=== PATIENT | male | born 1930 | race Two or more races ===

== ENCOUNTER 2017-11-19 20:01 | Inpatient (IN) | payer MEDICARE ==
[~2017-11-19] VITALS: Ht 177.8 cm; Wt 78.0 kg
[~2017-11-19 20:01] MED LIST: FLOMAX0.4 MG PO; GLIPIZIDE5 MG PO; NAPROXEN250 MG PO; NORCO 5-325 TA1 EACH PO; OMEPRAZOLE20 M1 PO; TOPROL XL25 MG PO; tylenol #4 PO
[2017-11-19 20:08] VITALS: BP 171/81
[2017-11-19 20:13] VITALS: BP 171/81
[2017-11-19] MEDS ORDERED: MELOXICAM7.5 MG PO (20:37)
[2017-11-19] MEDS ORDERED: METFORMIN HCL500 MG PO (20:37)
[2017-11-19 20:53] VITALS: BP 171/81
[2017-11-19] MEDS ORDERED: TRAMADOL HCL 50 MG TAB PO PRN (21:15)
[2017-11-19] MEDS ORDERED: METOPROLOL SUCCINATE 25 MG TAB XL PO ONE (22:45)
[2017-11-20 00:10] VITALS: BP 136/60
[2017-11-20 04:00] VITALS: BP 171/81
[2017-11-20 07:26] LABS: BASOPHILS % 0.3 % (0.0-1.0); EOSINOPHILS # (AUTO) 0.3 (0.0-0.4); EOSINOPHILS % 4.7 % (0.0-6.0); HEMATOCRIT 25.5 % (38.2-49.6); HEMOGLOBIN 8.8 g/dL (14.0-18.0); LYMPHOCYTES # (AUTO) 1.6 (1.0-3.2); LYMPHOCYTES % 23.1 % (18.0-39.1); MEAN CORPUSCULAR HEMOGLOBIN 32.1 pg (28-32); MEAN CORPUSCULAR HGB CONC 34.5 g/dL (31-35); MEAN CORPUSCULAR VOLUME 93.1 fL (81-99); MONOCYTES # (AUTO) 0.7 (0.2-0.8); MONOCYTES % 10.8 % (4.4-11.3); NEUTROPHILS # (AUTO) 4.2 (2.1-6.9); NEUTROPHILS % 60.7 % (38.7-80.0); PLATELET COUNT 172 x10e3/uL (140-360); RED BLOOD COUNT 2.74 x10e6/uL (4.3-5.7); RED CELL DISTRIBUTION WIDTH 12.9 % (11.7-14.4)
[2017-11-20 07:41] LABS: INR 1.14; PROTHROMBIN TIME 13.7 seconds (11.9-14.5)
[2017-11-20 07:42] LABS: PARTIAL THROMBOPLASTIN TIME 29.4 seconds (23.8-35.5)
[2017-11-20 07:59] LABS: ALBUMIN/GLOBULIN RATIO 1.1 (0.8-2.0); ANION GAP 11.2 mmol/L (8-16); CALCIUM 8.5 mg/dL (8.4-10.2); CREATININE, SERUM 1.53 mg/dL (0.72-1.25); POTASSIUM 4.2 mmol/L (3.5-5.1)
[2017-11-20] MEDS ORDERED: PANTOPRAZOLE SOD 40 MG TABEC PO SCH (09:00)
[2017-11-20] MEDS: METFORMIN HCL 500 MG TAB PO SCH ×2 (09:51→16:33)
[2017-11-20] MEDS: TAMSULOSIN HCL 0.4 MG CAP PO SCH (09:51)
[2017-11-20] MEDS: METOPROLOL SUCCINATE 25 MG TAB XL PO SCH (09:51)
[2017-11-20] MEDS: MELOXICAM 7.5 MG TAB PO SCH (09:51)
[2017-11-20] MEDS: PANTOPRAZOLE SOD 40 MG TABEC PO SCH (09:51)
[2017-11-20 10:11] VITALS: BP 151/97
[2017-11-20 11:59] VITALS: BP 119/62
--- NOTE | 2017-11-20 16:15 | Consultation ---
DATE OF CONSULTATION: November 19, 2017 CHIEF COMPLAINT: Left hip pain. HISTORY OF PRESENT ILLNESS: The patient is an 86-year-old gentleman who was found on the floor by his son next to his bed. This happened about 2 days ago. It was felt that he fell out of bed. He was initially returned to the bed and complained of left hip pain. After approximately one day, the family realized that he had something fairly significant going on and called 9--1. He was transported to [facility]. He was noted to have a left proximal femur fracture around the previous hip replacement. I had done the hip replacement back in 2013 and so they called me. He was transferred to [facility] for definitive treatment. PAST MEDICAL HISTORY: Has a history of diabetes. Previous surgeries include an original pinning of a left hip fracture treated in 2010 by another physician. This failed and he underwent a conversion to a left total hip arthroplasty by myself in March 2014. MEDICATIONS: He takes Glipizide, meloxicam, metoprolol, omeprazole and Tamsulosin and Tramadol. ALLERGIES: HE DENIES ANY DRUG ALLERGIES. SOCIAL HISTORY: He lives with his son. He does not smoke. He is . He does not drink. PHYSICAL EXAMINATION: GENERAL: He is awake, but provides a vague history. He seems somewhat confused and cannot provide all details. He is in 5 pounds of Graham's traction on the left lower extremity. The left thigh is swollen. Previous hip incision is well healed. Distal neurovascular exam is normal. X-rays show a periprosthetic fracture around a cemented [place] hip arthroplasty. There is a good cement mantle. IMPRESSION: Complex left hip periprosthetic fracture. I spoke to one of his sons. He clarified some of the details of the history outlined above. He mentioned that one of his other brothers has Power of V[employer] Overhauler. I explained that definitive treatment would require surgical intervention considering that he broke this from a fall from a standing height. I explained that his health is failing and he is becoming quite frail. My suspicion is that we will be able to realign the hip around the existing prosthesis with a cable plate, but he will need to use a wheelchair for roughly 3 months. The likelihood that he will return to ambulatory status is unknown. He appears to have some element of dementia and this further complicates and challenges the situation. The son explained that they will come to the hospital later today and I will visit with him further about the treatment options. Job#: [id number] PAUL
[2017-11-20 17:03] VITALS: BP 130/69
[2017-11-20] MEDS ORDERED: CEFAZOLIN SOD 1 GM VIAL IV SCH ×2 (18:00→22:00)
[2017-11-20 20:00] VITALS: BP 143/68
[2017-11-21] VITALS (7 sets, daily range): BP systolic 132–183; BP diastolic 62–87
[2017-11-21] MEDS: MELOXICAM 7.5 MG TAB PO SCH (09:00)
[2017-11-21] MEDS ORDERED: CEFAZOLIN SOD 1 GM VIAL IV SCH (09:00)
[2017-11-21] MEDS: METFORMIN HCL 500 MG TAB PO SCH ×2 (09:00→17:49)
[2017-11-21] MEDS: PANTOPRAZOLE SOD 40 MG TABEC PO SCH (09:00)
[2017-11-21] MEDS ORDERED: MUPIROCIN 2% OINT 22 GM TUBE ONE (09:23)
[2017-11-21] MEDS ORDERED: TRANEXAMIC ACID 1,000 MG/10 ML ML ONE (09:23)
[2017-11-21] MEDS ORDERED: BACITRACIN 50,000 UNIT VIAL ONE (09:24)
[2017-11-21] MEDS ORDERED: SODIUM CHLORIDE 0.9% 1000ML 1,000 ML IV SCH (11:05)
[2017-11-21] MEDS ORDERED: KETOROLAC TROMETHAMINE 30 MG/ML VIAL IV PRN (11:15)
[2017-11-21] MEDS ORDERED: PROMETHAZINE HCL (IM) 25 MG/ML VIAL IM PRN (11:15)
[2017-11-21] MEDS ORDERED: ONDANSETRON HCL INJ 2 MG/ML VIAL IV PRN (11:15)
[2017-11-21] MEDS ORDERED: ACETAMINOPHEN 650 MG SUPP PR PRN (11:15)
[2017-11-21] MEDS ORDERED: HYDROCODONE/APAP 5MG-325MG TAB PO PRN (11:15)
[2017-11-21] MEDS ORDERED: DIPHENHYDRAMINE HCL INJ 50 MG/ML VIAL IM/IV PRN (11:15)
[2017-11-21] MEDS ORDERED: HYDROCODONE/APAP 7.5MG-325MG 1 EA TAB PO PRN (11:15)
[2017-11-21] MEDS ORDERED: FENTANYL CITRATE/PF 100MCG/2 ML INJ ONE ×2 (11:37→15:06)
[2017-11-21] MEDS: ACETAMINOPHEN 1000 MG/100 ML IV SCH ×2 (13:04→18:24)
[2017-11-21] MEDS ORDERED: CEFAZOLIN SOD 1 GM/NS 50ML 50 ML IV SCH (14:00)
--- NOTE | 2017-11-21 16:27 | Operative Report ---
DATE OF PROCEDURE: November 21, 2017 __ASSISTANT: Alexandro Romero PA-C __The patient was brought to the operating room for induction of anesthesia. Throughout this case, my PA's assistance was necessary for retraction of soft tissue and positioning of the extremity. This allows for efficient and technically successful execution of the operation and is considered medically necessary. PREOPERATIVE DIAGNOSIS: Left femur periprosthetic fracture. POSTOPERATIVE DIAGNOSIS: Left femur periprosthetic fracture. PROCEDURE: Open reduction and internal fixation left femur periprosthetic fracture. INDICATIONS: The patient is an 86-year-old gentleman who is about 4 years status post a left total hip arthroplasty. He fell getting out of bed and now has a complex fracture around his left hip replacement. The findings and options have been discussed. He has a well-fixed cement mantle around an [place] femoral stem. I plan on open reduction with internal fixation using a cable plate. The risks and benefits and challenges of the recovery have been thoroughly explained to the patient and his family. They state they understand and wish to proceed. DESCRIPTION OF PROCEDURE: The patient was brought to the operating room and placed under general anesthetic. He received prophylactic antibiotics and tranexamic acid in the holding area. He was positioned in the right lateral decubitus position. His left lower extremity was carefully prepped and draped in a sterile manner. A preoperative time out was performed. An extensile direct lateral approach was made to the femur. Previous old Ethibond stitches were removed. The vastus lateralis was elevated off of the linea aspera. Perforating vessels were ligated. The distal muscle was not elevated to avoid unnecessary periosteal stripping. The fracture site was carefully exposed. Tillman retractors were placed. Reduction clamps and cerclage wires were used to reduce the spiral fracture in an anatomic fashion. A Biomet lateral cable plate was contoured to accommodate the bow of the greater trochanter. The 8-hole plate was fixed proximally with several cerclage wires and distally with interlocking screws. Nice secure fixation was felt to be obtained and directly observed at the time of surgery. Intraoperative x-rays confirmed anatomic reduction and good position of the hardware. As mentioned, the distal muscles were split in line with the fibers to allow placement of the screw holes with out stripping the entire muscles off of the linea aspera or lateral femur. Five mL of DBX bone putty was placed along the line of the fracture. This was done after thoroughly irrigating the wound with a shower-tip pulsatile lavage. The tensor fascia was then closed with interrupted 0 Vicryl. Subcuticular Vicryl and darin were used to close the skin. A sterile bandage was applied. The patient was returned to the supine position and extubated. He was transported to the recovery room in stable condition. Blood loss was approximately 100 mL. At the end of the procedure, all needle and sponge counts were correct. Because of his starting low hemoglobin, he was given 1 unit of packed red blood cells during the surgery. Job#: [id number] EV
[2017-11-21] MEDS: CELECOXIB 100 MG CAP PO SCH (17:49)
[2017-11-21] MEDS: CEFAZOLIN SOD 1 GM VIAL IV SCH (17:49)
[2017-11-21] MEDS: METOPROLOL SUCCINATE 25 MG TAB XL PO SCH (17:49)
[2017-11-21] MEDS: TAMSULOSIN HCL 0.4 MG CAP PO SCH (17:49)
[2017-11-21] MEDS: ASPIRIN 325 MG TAB PO SCH (17:49)
[2017-11-21] MEDS ORDERED: CEFAZOLIN SOD 2 GM in WATER STERILE 10ML VIAL 10 ML IV SCH (18:00)
[2017-11-21] MEDS ORDERED: DESFLURANE 240 ML BTL INH ONE (18:31)
[2017-11-21] MEDS ORDERED: ROCURONIUM BROMIDE 10 MG/ML 5ML VIAL ONE (18:31)
[2017-11-21] MEDS ORDERED: NEOSTIGMINE 5 MG/5ML SYR ONE (18:31)
[2017-11-21] MEDS ORDERED: PHENYLEPHRINE HCL 1% 10 MG/ML VIAL ONE (18:31)
[2017-11-21] MEDS ORDERED: DEXAMETHASONE SOD PHOS INJ 4 MG/ML VIAL ONE (18:31)
[2017-11-21] MEDS ORDERED: PROPOFOL IV EMULSION 10 MG/ML 20 ML VIAL ONE (18:31)
[2017-11-21] MEDS ORDERED: LIDOCAINE HCL 2% LOCAL INJ 5 ML SDV VIAL INJ ONE (18:31)
[2017-11-21] MEDS ORDERED: ONDANSETRON HCL INJ 2 MG/ML VIAL ONE (18:31)
[2017-11-21] MEDS ORDERED: GLYCOPYRROLATE INJ 1MG/ 5 ML SYR ONE (18:31)
[2017-11-21] MEDS ORDERED: ZOLPIDEM TARTRATE 5 MG TAB PO PRN (21:00)
[2017-11-21] MEDS: CLONIDINE HCL 0.1 MG TAB PO PRN (21:43)
[2017-11-22] VITALS (8 sets, daily range): BP systolic 117–147; BP diastolic 57–68
[2017-11-22] MEDS: CEFAZOLIN SOD 1 GM VIAL IV SCH ×2 (00:27→09:13)
[2017-11-22] MEDS: ACETAMINOPHEN 1000 MG/100 ML IV SCH ×2 (05:25)
[2017-11-22 07:46] LABS: HEMATOCRIT 24.9 % (38.2-49.6); HEMOGLOBIN 8.5 g/dL (14.0-18.0)
[2017-11-22 08:01] LABS: ALBUMIN 2.9 g/dL (3.5-5.0); ANION GAP 11.6 mmol/L (8-16); CALCIUM 8.3 mg/dL (8.4-10.2); CREATININE, SERUM 1.86 mg/dL (0.72-1.25); POTASSIUM 4.6 mmol/L (3.5-5.1)
[2017-11-22] MEDS: ASPIRIN 325 MG TAB PO SCH ×2 (09:13→16:45)
[2017-11-22] MEDS: TAMSULOSIN HCL 0.4 MG CAP PO SCH (09:13)
[2017-11-22] MEDS: PANTOPRAZOLE SOD 40 MG TABEC PO SCH (09:13)
[2017-11-22] MEDS: CELECOXIB 100 MG CAP PO SCH (09:13)
[2017-11-22] MEDS: METFORMIN HCL 500 MG TAB PO SCH ×2 (09:13→16:45)
[2017-11-22] MEDS: MELOXICAM 7.5 MG TAB PO SCH (09:13)
[2017-11-22] MEDS: METOPROLOL SUCCINATE 25 MG TAB XL PO SCH (09:14)
[2017-11-22] MEDS ORDERED: ACETAMINOPHEN 1000 MG/100 ML IV PRN (11:15)
[2017-11-22] MEDS: CELECOXIB 200 MG CAP PO SCH (16:45)
[2017-11-23] VITALS (8 sets, daily range): BP systolic 123–175; BP diastolic 58–72
[2017-11-23 07:21] LABS: HEMATOCRIT 24.1 % (38.2-49.6); HEMOGLOBIN 8.1 g/dL (14.0-18.0)
[2017-11-23] MEDS: ASPIRIN 325 MG TAB PO SCH ×2 (09:15→16:23)
[2017-11-23] MEDS: METOPROLOL SUCCINATE 25 MG TAB XL PO SCH (09:15)
[2017-11-23] MEDS: METFORMIN HCL 500 MG TAB PO SCH ×2 (09:15→16:23)
[2017-11-23] MEDS: PANTOPRAZOLE SOD 40 MG TABEC PO SCH (09:15)
[2017-11-23] MEDS: MELOXICAM 7.5 MG TAB PO SCH (09:15)
[2017-11-23] MEDS: CELECOXIB 200 MG CAP PO SCH ×2 (09:15→16:23)
[2017-11-23] MEDS: TAMSULOSIN HCL 0.4 MG CAP PO SCH (09:15)
[2017-11-23] MEDS: DOCUSATE SODIUM 100 MG CAP PO PRN (18:05)
[2017-11-24] VITALS (8 sets, daily range): BP systolic 134–148; BP diastolic 63–76
[2017-11-24] MEDS: MELOXICAM 7.5 MG TAB PO SCH (08:19)
[2017-11-24] MEDS: ASPIRIN 325 MG TAB PO SCH ×2 (08:19→16:25)
[2017-11-24] MEDS: CELECOXIB 200 MG CAP PO SCH ×2 (08:19→16:25)
[2017-11-24] MEDS: PANTOPRAZOLE SOD 40 MG TABEC PO SCH (08:19)
[2017-11-24] MEDS: METFORMIN HCL 500 MG TAB PO SCH ×2 (08:19→16:25)
[2017-11-24] MEDS: TAMSULOSIN HCL 0.4 MG CAP PO SCH (08:19)
[2017-11-24] MEDS: METOPROLOL SUCCINATE 25 MG TAB XL PO SCH (08:20)
[2017-11-24] MEDS: DOCUSATE SODIUM 100 MG CAP PO PRN (08:20)
[2017-11-25] VITALS: BP 130/76
[2017-11-25 04:00] VITALS: BP 142/63
[2017-11-25] MEDS: BISACODYL 5 MG TAB EC PO SCH ×3 (06:39→14:00)
[2017-11-25 07:54] LABS: BASOPHILS % 0.4 % (0.0-1.0); EOSINOPHILS # (AUTO) 0.6 (0.0-0.4); EOSINOPHILS % 7.6 % (0.0-6.0); HEMATOCRIT 24.7 % (38.2-49.6); HEMOGLOBIN 8.3 g/dL (14.0-18.0); LYMPHOCYTES # (AUTO) 1.4 (1.0-3.2); LYMPHOCYTES % 18.9 % (18.0-39.1); MEAN CORPUSCULAR HGB CONC 33.6 g/dL (31-35); MEAN CORPUSCULAR VOLUME 92.2 fL (81-99); MONOCYTES # (AUTO) 0.6 (0.2-0.8); NEUTROPHILS # (AUTO) 4.9 (2.1-6.9); NEUTROPHILS % 64.4 % (38.7-80.0); PLATELET COUNT 183 x10e3/uL (140-360); RED BLOOD COUNT 2.68 x10e6/uL (4.3-5.7); RED CELL DISTRIBUTION WIDTH 14.4 % (11.7-14.4)
[2017-11-25 08:16] VITALS: BP 163/72
[2017-11-25 08:20] LABS: ALBUMIN 2.6 g/dL (3.5-5.0); ALBUMIN/GLOBULIN RATIO 0.8 (0.8-2.0); ANION GAP 10.5 mmol/L (8-16); CALCIUM 8.7 mg/dL (8.4-10.2); CREATININE, SERUM 1.44 mg/dL (0.72-1.25); POTASSIUM 4.5 mmol/L (3.5-5.1)
[2017-11-25] MEDS: MELOXICAM 7.5 MG TAB PO SCH ×2 (09:00→09:05)
[2017-11-25] MEDS: ASPIRIN 325 MG TAB PO SCH ×2 (09:05→17:49)
[2017-11-25] MEDS: METFORMIN HCL 500 MG TAB PO SCH ×2 (09:05→17:49)
[2017-11-25] MEDS: CELECOXIB 200 MG CAP PO SCH ×2 (09:05→17:49)
[2017-11-25] MEDS: METOPROLOL SUCCINATE 25 MG TAB XL PO SCH (09:05)
[2017-11-25] MEDS: PANTOPRAZOLE SOD 40 MG TABEC PO SCH (09:05)
[2017-11-25] MEDS: TAMSULOSIN HCL 0.4 MG CAP PO SCH (09:05)
[2017-11-25 12:00] VITALS: BP 118/56
[2017-11-25 16:25] VITALS: BP 144/65
[2017-11-25 20:00] VITALS: BP 136/62
[2017-11-26] VITALS: BP 172/77
[2017-11-26] MEDS: CLONIDINE HCL 0.1 MG TAB PO PRN (01:18)
[2017-11-26 04:00] VITALS: BP 125/58
[2017-11-26] MEDS ORDERED: BISACODYL 5 MG TAB EC PO PRN (06:00)
[2017-11-26 08:27] VITALS: BP 134/64
[2017-11-26] MEDS: CELECOXIB 200 MG CAP PO SCH ×2 (09:00→17:00)
[2017-11-26] MEDS: METOPROLOL SUCCINATE 25 MG TAB XL PO SCH (09:00)
[2017-11-26] MEDS: ASPIRIN 325 MG TAB PO SCH ×2 (09:00→17:00)
[2017-11-26] MEDS: MELOXICAM 7.5 MG TAB PO SCH (09:00)
[2017-11-26] MEDS: METFORMIN HCL 500 MG TAB PO SCH ×2 (09:00→17:00)
[2017-11-26] MEDS: PANTOPRAZOLE SOD 40 MG TABEC PO SCH (09:00)
[2017-11-26] MEDS: TAMSULOSIN HCL 0.4 MG CAP PO SCH (09:00)
[2017-11-26 12:23] VITALS: BP 146/92
[2017-11-26 16:42] VITALS: BP 167/72
[2017-11-26 20:00] VITALS: BP 133/63
== END 2017-11-26 20:20 | disposition home or self-care (01) | DRG 482 ==
LOC: MED/SURG 20:01
PROVIDERS: ADMIT Internal Medicine; ATTEND Internal Medicine
PROC: 0QS704Z Reposition Left Upper Femur with Internal Fixation Device, Open Approach (ICD-10-PCS; principal; 2017-11-21 09:30)
DX: M97.02XA Periprosthetic fracture around internal prosthetic left hip joint, initial encounter (principal); E11.22 Type 2 diabetes mellitus with diabetic chronic kidney disease; F03.90 Unspecified dementia, unspecified severity, without behavioral disturbance, psychotic disturbance, mood disturbance, and anxiety; N18.3 Chronic kidney disease, stage 3 (moderate); I12.9 Hypertensive chronic kidney disease with stage 1 through stage 4 chronic kidney disease, or unspecified chronic kidney disease; D64.9 Anemia, unspecified; K59.00 Constipation, unspecified; N40.0 Benign prostatic hyperplasia without lower urinary tract symptoms; W06.XXXA Fall from bed, initial encounter
CPT/HCPCS: 36415; 76001; 80053; 82948; 83735; 85014; 85018; 85025; 85610; 85730; 86850; 86900; 86920; 97139; C1713; J0690; J1100; J2001; J2370; J2405; J7030; P9016